=== PATIENT | female | born 1990 | race Caucasian/White ===

== ENCOUNTER 2016-11-03 14:00 | Outpatient (CLI) | payer BC | END 2016-11-03 14:01 | disposition home or self-care (01) | LOC: LAB.WCP 14:00 | PROVIDERS: ATTEND Family Medicine | DX: N76.0 Acute vaginitis (principal) | CPT/HCPCS: 81599; 87491; 87591 ==

== ENCOUNTER 2016-11-03 14:00 | Outpatient (CLI) | payer BC ==
[2016-11-04 20:27] LABS: TEST RESULT REPORT (())
== END 2016-11-03 14:01 | disposition home or self-care (01) ==
LOC: LAB.R 14:00
PROVIDERS: ATTEND Family Medicine
DX: N76.0 Acute vaginitis (principal)
CPT/HCPCS: 81599; 87480; 87510; 87660